=== PATIENT | female | born 1990 | race Caucasian/White ===

== ENCOUNTER → 2017-01-21 | Outpatient (CLI) | payer OTHER | END | disposition home or self-care (01) | LOC: C.PAPS 14:01 | PROVIDERS: ATTEND Physician Assistant | DX: Z12.4 Encounter for screening for malignant neoplasm of cervix (principal) ==

== ENCOUNTER → 2017-01-25 | Outpatient (CLI) | payer OTHER ==
[2017-01-25 09:54] LABS: THYROID STIMULATING HORMONE 2.07 uIu/ml (0.300-4.500)
[2017-01-25 10:22] LABS: PROLACTIN 12.62 ng/mL
[2017-01-25 10:23] LABS: CALCULATED INSULIN SENSITIVITY 0.308; GLUCOSE LOG 1.9191; INSULIN FASTING 21.4 mU/L (3-25); INSULIN LOG 1.3304
== END | disposition home or self-care (01) ==
LOC: C.LAB1850 08:14
PROVIDERS: ATTEND Physician Assistant
DX: L68.0 Hirsutism (principal); N92.6 Irregular menstruation, unspecified

== ENCOUNTER 2021-12-19 07:21 | Inpatient (IN) ==
[2021-12-19] MEDS ORDERED: LIDOCAINE 1% LOCAL 20 ML VIAL INFIL PRN (07:28)
[2021-12-19] MEDS ORDERED: OXYTOCIN 30 UNITS/500 ML BAG IV PRN ×3 (07:28→22:49)
[2021-12-19 08:01] LABS: Hematocrit (blood only) 40.5 % (34.1-44.9); Hemoglobin 13.6 g/dl (12.0-16.0); Mean Corpuscular Hemoglobin 27.9 pg (25.0-34.0); Mean Corpuscular Hgb Conc 33.6 g/dL (32.0-36.0); Mean Platelet Volume 9.7 fL (9.4-12.3); Platelet Count 319 K/uL (130-400); RDW Standard Deviation 44.9 fL (36.4-46.3); Red Blood Count 4.88 M/uL (3.93-5.22)
[2021-12-19] MEDS: LACTATED RINGER'S 1,000 ML IV PRN ×3 (09:06→18:24)
--- NOTE | 2021-12-19 10:37 | History & Physical Report ---
Date of Service December 19, 2021 Assessment & Plan (1) Supervision of normal first : (2) Post term at 41 weeks gestation: Plan: cervical balloon placed successfully for unfavorable cervix at term pitocin augmentation epidural analgesia when requested anticipate vaginal Admission and Anticipated Discharge Date Admission Date: December 19, 2021 History of Present Illness Primary Care Provider: BANG Garzon Patient is a 31 yo female EDC 12/11/21 who presents for IOL because of post term . complicated by elevated BMI. growth at 32 weeks was 21%tile. GBS negative, Rubella equivocal. Allergies Allergy/AdvReac Type Severity Reaction Status Date / Time No Known Allergies Allergy Verified 12/19/21 08:35 Home Medications Medication Instructions Recorded Confirmed Type prenat.vits,deni,gwi-qwzv-thqlh 1 tab PO DAILY 04/26/21 12/19/21 History magnesium 500 mg tablet PO DAILY 12/19/21 History Patient History Medical History Hx of migraines Varicella vaccination Surgical History S/P tonsillectomy and adenoidectomy Family History Mother Hypertension Father Hypertension Denies family history of Ovarian cancer Breast cancer Colorectal cancer Social History Smoking Status: Never smoker Hx Alcohol Use: No Hx Substance Use: No Preferred Language: Tajik Communication Ability: Effective 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 Beliefs That Will Affect Care: None marital status: marital status details: Brandon Davila (30) [phone] Current Living Situation: Spouse Current Living Situation Comment: Brandon - current occupational status: employed current occupation: outside installer apprentice rep Other Information That Helps Us Care for You: No Feels Safe at Home: Yes Safety Concerns: Feels Safe At This Time Assistive Devices: None Review of Systems All systems reviewed & are unremarkable except as noted in HPI & below Physical Exam Constitutional: WD/WN, vitals as above Psychiatric: A+Ox3, euthymic affect Genitourinary: OB Exam Abdomen: + vertex, + estimated weight (6-7 pounds) and + irregular contractions Manual OB Exam: + cervical dilation (closed), + cervical effacement 70% and + station -2 OB Exam Monitor Tracing: + external FHT monitor used, + external uterine monitor used, + category I and + normal FHT variability cervical balloon placed under direct visualization after speculum placed vaginally. 40cc sterile water were instilled into the balloon. the catheter was placed on traction an attached to her left thigh. patient tolerated procedure well. Results & Data ([facility]) Vital Signs (Past 12 Hours) Vital Signs Temp Pulse Resp BP 12/19/21 07:53 98.4 F 20 12/19/21 10:20 81 12/19/21 10:20 114/68 12/19/21 09:12 90 12/19/21 09:12 115/82 12/19/21 08:02 100 H 12/19/21 08:02 117/85 12/19/21 07:45 96 H 143/93 H Coding Level of Care Code None Diagnoses Supervision of normal first Z34.00 Post term at 41 weeks gestation O48.0; Z3A.41 CPT Codes Misx Procedure Codes - 36133 Placement of cervical dilator: 57286 Placement of cervical dilator ([id number])
[2021-12-19] MEDS ORDERED: ePHEDrine sulfate 50 MG/ML AMP ONE (15:38)
[2021-12-19] MEDS ORDERED: fentaNYL 2MCG/ML ROPIVACAINE 1.25MG/ML 100 ML BAG EPI ONE (15:39)
[2021-12-19] MEDS ORDERED: SODIUM CHLORIDE 0.9% INJ 10 ML VIAL ONE (15:39)
[2021-12-19] MEDS ORDERED: fentaNYL citrate 100 MCG/2 ML VIAL ONE (15:39)
[2021-12-19] MEDS ORDERED: BUPIVACAINE 0.25% 30 ML VIAL ONE (15:39)
[2021-12-19] MEDS ORDERED: LIDOCAINE 2%/EPINEPHRINE 1:200,000 20 ML SDV ONE (15:39)
[2021-12-19] MEDS ORDERED: fentaNYL 2MCG/ML ROPIVACAINE 1.25MG/ML 100 ML BAG EPI PRN (15:52)
[2021-12-19] MEDS ORDERED: NALOXONE HCL 1 MG in SODIUM CHLORIDE 0.9% 1000ML 1,000 ML IV PRN (15:52)
[2021-12-19] MEDS ORDERED: ONDANSETRON INJ 2 MG/ML 2 ML VIAL IV PRN (15:52)
[2021-12-19] MEDS ORDERED: ePHEDrine sulfate 50 MG/ML AMP IV PRN (15:52)
[2021-12-19] MEDS ORDERED: NALBUPHINE HCL INJ 10 MG/ML AMP IV PRN (15:52)
[2021-12-19] MEDS ORDERED: NALOXONE HCL 0.4 MG/1 ML VIAL/CARP IV PRN (15:52)
[2021-12-19] MEDS ORDERED: diphenhydrAMINE 50 MG/ML VIAL IV PRN (15:52)
--- NOTE | 2021-12-19 16:02 | Anesthesiology Consultation ---
Date of Service December 19, 2021 Assessment & Plan Chart Review Chart Review: Acceptable Risk for Labor Epidural Consults Requested none ASA ASA2 Proposed Anesthesia Anesthesia Type: Labor Epidural Risk / Benefits Reviewed With: PT / POA / Parent / Guardian, Accepts Plan and Informed Consent Obtained History Height/Weight Height: 5 ft 8 in Weight: 115.666 kg Allergies Allergy/AdvReac Type Severity Reaction Status Date / Time No Known Allergies Allergy Verified 12/19/21 08:35 Medications Home Medications Medication Instructions Recorded Confirmed Last Taken prenat.vits,deni,gkq-wkkh-ddrep 1 tab PO DAILY 04/26/21 12/19/21 12/19/21 06:00 magnesium 500 mg tablet PO DAILY 12/19/21 12/19/21 06:00 Active Medications Generic Name Dose Route Start Last Admin Trade Name Freq PRN Reason Stop Dose Admin Oxytocin 30 units in 500 mls @ 9 mls/hr 12/19/21 07:28 12/19/21 11:30 Pitocin IV 12/21/21 07:27 0.54 units/hr .Q24H PRN 9 mls/hr Labor Induction/Augmentation Titration Protocol 0.54 UNITS/HR Lactated Ringer's 1,000 mls @ 125 mls/hr 12/19/21 07:28 12/19/21 15:47 Lr IV 12/21/21 07:27 999 mls/hr .Q8H PRN Administration L&D Protocol Protocol Past Medical History Medical History Hx of migraines Varicella vaccination Exercise / Class Metabolic Activity II 4-5 Yardwork/Stairs/Walk up hill Past Family History Family History Mother Hypertension Father Hypertension Denies family history of Ovarian cancer Breast cancer Colorectal cancer Past Surgical History Surgical History S/P tonsillectomy and adenoidectomy Past Anesthesia History No Hx of Anesthesia Complications and No Family Hx of Anesthesia Complications History of PONV No Hx of PONV and No Hx of Motion Sickness Social History Smoking Status: Never smoker Hx Alcohol Use: No Hx Substance Use: No Physical Exam Vital Signs Last Vital Signs Temp 98.4 F 12/19/21 07:53 Pulse 84 12/19/21 15:37 Resp 20 12/19/21 07:53 BP 140/82 12/19/21 15:37 ENMT Mouth: no dentition abnormality Thyromental Distance: > or= 3.5 Finger Breadths Mallampati Class: II Neck normal visual inspection Respiratory normal respiratory effort Auscultation: lungs clear to auscultation bilaterally Cardiovascular Rate/Rhythm: regular rate and regular rhythm Testing Laboratory Results 12/19/21 07:49 Blood Type O Positive 12/19/21 07:49 Antibody Screen NEGATIVE 12/19/21 07:49
[2021-12-19] MEDS ORDERED: CALCIUM CARBONATE 500 MG CHEWABLE TAB PO PRN (20:14)
[2021-12-19] MEDS ORDERED: CALCIUM CARBONATE 500 MG CHEWABLE TAB ONE (20:32)
[2021-12-19] MEDS ORDERED: ACETAMINOPHEN 325 MG TAB PO PRN (22:49)
[2021-12-19] MEDS ORDERED: BENZOCAINE 20% AER SPR 82.5 GM CAN EXT PRN (22:49)
[2021-12-19] MEDS ORDERED: oxyCODONE/ACETAMINOPHEN 5mg/325mg TAB PO PRN (22:49)
[2021-12-19] MEDS ORDERED: DIPHTHERIA/TETANUS/PERTUSSIS 0.5 ML SYR/VIAL IM ONE (22:49)
[2021-12-19] MEDS ORDERED: HYDROCORTISONE ACETATE 25 MG SUPP PR PRN (22:49)
[2021-12-19] MEDS ORDERED: bisacodyL 10 MG SUPP PR PRN (22:49)
--- NOTE | 2021-12-19 23:18 | Delivery Summary ---
Vaginal Delivery Summary Date of Service December 19, 2021 Vaginal Delivery Summary and 2nd Degree LAC Patient is a 31-year-old 1 P0 female who presented for induction of labor because of postterm . She received a cervical balloon and Pitocin augmentation on admission. After balloon was expelled membranes were ruptured for clear fluid. She received effective epidural analgesia. She progressed to full dilation and pushed effectively over intact perineum for de livery of a viable female infant. After the head was delivered loose double nuchal cord was reduced prior to delivering the rest of the . The was placed on the mother's abdomen for further attention and drying. She was vigorous and moving all 4 limbs. After 1 minute the cord was clamped and cut. The placenta was expressed intact with a three-vessel cord. A second-degree perineal laceration was repaired with 3-0 chromic in the usual fashion. Estimated blood loss was 200 cc. Mother and were doing well after delivery. MNP Vaginal Delivery Charge Delivery Type Details: and 2nd Degree LAC
[2021-12-20] MEDS: IBUPROFEN 600 MG TAB PO PRN ×5 (01:42→23:25)
--- NOTE | 2021-12-20 05:58 | Obstetrical Progress Note ---
Date of Service <Ira Srinivasan - Last Filed: 12/20/21 07:35> December 20, 2021 Assessment & Plan <Ira Srinivasan - Last Filed: 12/20/21 07:35> (1) Status post vaginal delivery: continue OOB, ambulation, diet as tolerated <Leah See MD, FACOG - Last Filed: 12/20/21 08:12> (1) Status post vaginal delivery: Subjective <Ira SrinivasanDO - Last Filed: 12/20/21 07:35> Marlin is a 31 y/o female who is now PPD # 1 following spontaneous vaginal delivery at 41 1/7 weeks. Minimal sleep last night, baby was up most of the night. Mild abdominal cramping & pain well managed on analgesics. Voiding. Tolerating meals overnight and able to ambulate some. Some persistent lochia with some improvement this morning. Bottle feeding. Review of Systems Denies fever, chills, sweats Denies shortness of breath, difficulty breathing, chest pain, palpitations, chest pressure. Denies breast pain. Denies dysuria. Denies headache or changes in vision. Physical Exam <Ira Srinivasan - Last Filed: 12/20/21 07:35> General: Alert, oriented. No acute distress. Cardiac: Regular rate and rhythm, no murmurs/rubs/gallops. Respiratory: Clear to auscultation bilaterally a/p, no wheezes/rales/rhonchi. No increased work of breathing. Symmetrical chest rise. No respiratory distress. Abdomen: Soft, nontender, nondistended. Uterus: Uterine fundus firm, palpable at umbilicus. Lower Extremities: No lower extremity edema or swelling. No deep calf pain. Lulú's negative bilaterally. Results & Data ([facility]) <Ira SrinivasanDO - Last Filed: 12/20/21 07:35> Vital Signs (Past 12 Hours) Vital Signs Temp Pulse Pulse Resp BP BP Pulse Ox 12/20/21 04:15 36.4 C L 109 H 20 129/91 97 12/20/21 01:15 36.7 C 113 H 18 123/87 97 12/19/21 23:30 116 H 18 151/82 H 12/19/21 23:15 100 H 18 148/80 H 12/19/21 23:00 100 H 18 148/80 H 12/19/21 22:45 100 H 18 12/20/21 00:43 114 H 136/80 12/20/21 00:28 120 H 132/74 12/20/21 00:13 122 H 145/69 H 12/19/21 23:58 126 H 12/19/21 23:58 144/71 H 12/19/21 23:43 113 H 12/19/21 23:43 148/71 H 12/19/21 23:28 116 H 12/19/21 23:28 151/82 H 12/19/21 23:13 100 H 12/19/21 23:13 148/80 H 12/19/21 22:58 100 H 12/19/21 22:58 169/95 H 12/19/21 22:43 111 H 12/19/21 22:43 128/85 12/19/21 22:40 97 12/19/21 22:40 113 H 12/19/21 22:35 97 12/19/21 22:35 118 H 12/19/21 22:30 96 12/19/21 22:30 121 H 12/19/21 22:25 96 12/19/21 22:25 117 H 12/19/21 22:20 97 12/19/21 22:20 123 H 12/19/21 22:15 99 12/19/21 22:15 130 H 12/19/21 22:13 111 H 12/19/21 22:13 167/77 H 12/19/21 22:10 97 12/19/21 22:10 108 H 12/19/21 22:05 97 12/19/21 22:05 104 H 12/19/21 22:00 97 12/19/21 22:00 99 H 12/19/21 22:00 18 12/19/21 22:00 18 12/19/21 21:59 98 H 12/19/21 21:59 163/85 H 12/19/21 21:55 98 12/19/21 21:55 96 H 12/19/21 21:50 95 12/19/21 21:50 96 H 12/19/21 21:30 18 12/19/21 21:30 18 12/19/21 21:45 96 12/19/21 21:45 95 H 12/19/21 21:43 95 H 12/19/21 21:43 170/94 H 12/19/21 21:40 97 12/19/21 21:40 98 H 12/19/21 21:35 94 12/19/21 21:35 101 H 12/19/21 21:30 95 12/19/21 21:30 95 H 12/19/21 21:28 93 H 12/19/21 21:28 162/90 H 12/19/21 21:25 96 12/19/21 21:25 101 H 12/19/21 21:20 95 12/19/21 21:20 94 H 12/19/21 21:15 97 12/19/21 21:15 94 H 12/19/21 21:13 88 12/19/21 21:13 144/85 H 12/19/21 21:10 97 12/19/21 21:10 91 H 12/19/21 21:05 97 12/19/21 21:05 91 H 12/19/21 20:47 36.9 C 12/19/21 21:00 18 12/19/21 21:00 18 12/19/21 21:00 96 12/19/21 21:00 96 H 12/19/21 20:58 91 H 12/19/21 20:58 164/89 H 12/19/21 20:55 97 12/19/21 20:55 92 H 12/19/21 20:50 97 12/19/21 20:50 93 H 12/19/21 20:45 97 12/19/21 20:45 91 H 12/19/21 20:44 90 12/19/21 20:44 132/87 12/19/21 20:40 97 12/19/21 20:40 96 H 12/19/21 20:30 18 12/19/21 20:30 18 12/19/21 20:00 18 12/19/21 20:00 18 12/19/21 20:35 97 12/19/21 20:35 93 H 12/19/21 20:30 97 12/19/21 20:30 95 H 12/19/21 20:29 109 H 12/19/21 20:29 172/97 H 12/19/21 20:25 97 12/19/21 20:25 86 12/19/21 20:20 97 12/19/21 20:20 91 H 12/19/21 20:15 98 12/19/21 20:15 96 H 12/19/21 20:14 100 H 12/19/21 20:14 148/95 H 12/19/21 20:10 97 12/19/21 20:10 97 H 12/19/21 20:05 96 12/19/21 20:05 92 H 12/19/21 20:00 97 12/19/21 20:00 90 12/19/21 19:58 85 12/19/21 19:58 143/91 H 12/19/21 19:55 98 12/19/21 19:55 90 12/19/21 19:50 97 12/19/21 19:50 93 H 12/19/21 19:45 98 12/19/21 19:45 85 12/19/21 19:44 83 12/19/21 19:44 147/84 H 12/19/21 19:41 92 12/19/21 19:41 100 H 12/19/21 19:40 99 12/19/21 19:40 98 H 12/19/21 19:35 98 12/19/21 19:35 83 12/19/21 19:30 96 12/19/21 19:30 90 12/19/21 19:30 18 12/19/21 19:30 18 12/19/21 19:29 82 12/19/21 19:29 134/69 12/19/21 19:25 96 12/19/21 19:25 83 12/19/21 19:20 97 12/19/21 19:20 82 12/19/21 19:15 97 12/19/21 19:15 80 12/19/21 19:13 83 12/19/21 19:13 129/75 12/19/21 19:10 98 12/19/21 19:10 81 12/19/21 18:35 20 12/19/21 18:35 20 12/19/21 19:06 18 12/19/21 19:06 36.9 C 18 12/19/21 19:05 97 12/19/21 19:05 86 12/19/21 19:00 96 12/19/21 19:00 78 10/25/22 18:58 80 12/19/21 18:58 127/66 12/19/21 18:55 95 12/19/21 18:55 86 12/19/21 18:50 97 12/19/21 18:50 80 12/19/21 18:45 96 12/19/21 18:45 90 12/19/21 18:44 78 12/19/21 18:44 126/64 12/19/21 18:40 97 12/19/21 18:40 79 12/19/21 18:20 20 12/19/21 18:20 20 12/19/21 18:05 20 12/19/21 18:05 20 12/19/21 18:35 97 12/19/21 18:35 77 12/19/21 18:30 98 12/19/21 18:30 84 12/19/21 18:29 87 12/19/21 18:29 128/62 12/19/21 18:25 99 12/19/21 18:25 93 H 12/19/21 18:20 100 12/19/21 18:20 84 12/19/21 18:15 98 12/19/21 18:15 83 12/19/21 18:14 76 12/19/21 18:14 132/74 12/19/21 18:10 98 12/19/21 18:10 95 H 12/19/21 18:05 98 12/19/21 18:05 85 12/19/21 18:00 97 12/19/21 18:00 85 12/19/21 17:59 81 12/19/21 17:59 139/84 O2 Del Method 12/20/21 04:15 Room Air 12/20/21 01:15 Room Air 12/19/21 23:30 12/19/21 23:15 12/19/21 23:00 12/19/21 22:45 12/20/21 00:43 12/20/21 00:28 12/20/21 00:13 12/19/21 23:58 12/19/21 23:58 12/19/21 23:43 12/19/21 23:43 12/19/21 23:28 12/19/21 23:28 12/19/21 23:13 12/19/21 23:13 12/19/21 22:58 12/19/21 22:58 12/19/21 22:43 12/19/21 22:43 12/19/21 22:40 12/19/21 22:40 12/19/21 22:35 12/19/21 22:35 12/19/21 22:30 12/19/21 22:30 12/19/21 22:25 12/19/21 22:25 12/19/21 22:20 12/19/21 22:20 12/19/21 22:15 12/19/21 22:15 12/19/21 22:13 12/19/21 22:13 12/19/21 22:10 12/19/21 22:10 12/19/21 22:05 12/19/21 22:05 12/19/21 22:00 12/19/21 22:00 12/19/21 22:00 12/19/21 22:00 12/19/21 21:59 12/19/21 21:59 12/19/21 21:55 12/19/21 21:55 12/19/21 21:50 12/19/21 21:50 12/19/21 21:30 12/19/21 21:30 12/19/21 21:45 12/19/21 21:45 12/19/21 21:43 12/19/21 21:43 12/19/21 21:40 12/19/21 21:40 12/19/21 21:35 12/19/21 21:35 12/19/21 21:30 12/19/21 21:30 12/19/21 21:28 12/19/21 21:28 12/19/21 21:25 12/19/21 21:25 12/19/21 21:20 12/19/21 21:20 12/19/21 21:15 12/19/21 21:15 12/19/21 21:13 12/19/21 21:13 12/19/21 21:10 12/19/21 21:10 12/19/21 21:05 12/19/21 21:05 12/19/21 20:47 12/19/21 21:00 12/19/21 21:00 12/19/21 21:00 12/19/21 21:00 12/19/21 20:58 12/19/21 20:58 12/19/21 20:55 12/19/21 20:55 12/19/21 20:50 12/19/21 20:50 12/19/21 20:45 12/19/21 20:45 12/19/21 20:44 12/19/21 20:44 12/19/21 20:40 12/19/21 20:40 12/19/21 20:30 12/19/21 20:30 12/19/21 20:00 12/19/21 20:00 12/19/21 20:35 12/19/21 20:35 12/19/21 20:30 12/19/21 20:30 12/19/21 20:29 12/19/21 20:29 12/19/21 20:25 12/19/21 20:25 12/19/21 20:20 12/19/21 20:20 12/19/21 20:15 12/19/21 20:15 12/19/21 20:14 12/19/21 20:14 12/19/21 20:10 12/19/21 20:10 12/19/21 20:05 12/19/21 20:05 12/19/21 20:00 12/19/21 20:00 12/19/21 19:58 12/19/21 19:58 12/19/21 19:55 12/19/21 19:55 12/19/21 19:50 12/19/21 19:50 12/19/21 19:45 12/19/21 19:45 12/19/21 19:44 12/19/21 19:44 12/19/21 19:41 12/19/21 19:41 12/19/21 19:40 12/19/21 19:40 12/19/21 19:35 12/19/21 19:35 12/19/21 19:30 12/19/21 19:30 12/19/21 19:30 12/19/21 19:30 12/19/21 19:29 12/19/21 19:29 12/19/21 19:25 12/19/21 19:25 12/19/21 19:20 12/19/21 19:20 12/19/21 19:15 12/19/21 19:15 12/19/21 19:13 12/19/21 19:13 12/19/21 19:10 12/19/21 19:10 12/19/21 18:35 12/19/21 18:35 12/19/21 19:06 12/19/21 19:06 12/19/21 19:05 12/19/21 19:05 12/19/21 19:00 12/19/21 19:00 12/19/21 18:58 12/19/21 18:58 12/19/21 18:55 12/19/21 18:55 12/19/21 18:50 12/19/21 18:50 12/19/21 18:45 12/19/21 18:45 12/19/21 18:44 12/19/21 18:44 12/19/21 18:40 12/19/21 18:40 12/19/21 18:20 12/19/21 18:20 12/19/21 18:05 12/19/21 18:05 12/19/21 18:35 12/19/21 18:35 12/19/21 18:30 12/19/21 18:30 12/19/21 18:29 12/19/21 18:29 12/19/21 18:25 12/19/21 18:25 12/19/21 18:20 12/19/21 18:20 12/19/21 18:15 12/19/21 18:15 12/19/21 18:14 12/19/21 18:14 12/19/21 18:10 12/19/21 18:10 12/19/21 18:05 12/19/21 18:05 12/19/21 18:00 12/19/21 18:00 12/19/21 17:59 12/19/21 17:59 <Leah See MD, FACOG - Last Filed: 12/20/21 08:12> Co-Signing Physician Notes Resident Physician Supervision Note: I interviewed and examined the patient. Discussed with Dr. Srinivasan and agree with findings and plan as documented in the note. Any exceptions or clarifications are listed here: [None] Documented By: Leah See MD, FACOG Resident Activity Tracking <Ira Srinivasan, DO - Last Filed: 12/20/21 07:35> Resident Involvement: Resident Care Provided Care Provided: OB Delivery (Post )
--- NOTE | 2021-12-20 07:42 | Anesthesia Procedure Note ---
Date of Service December 20, 2021 Anesthesia Post Epidural Note Vital Signs Vital Signs: Temp Pulse Resp BP Pulse Ox O2 Del Method 36.4 C L 109 H 20 129/91 97 12/20/21 04:15 12/20/21 04:15 12/20/21 04:15 12/20/21 04:15 12/20/21 04:15 12/20/21 04:15 Pain Intensity Abdomen: Pain Intensity: 2 Notes Mental Status: alert / awake / arousable Nausea / Vomiting: adequately controlled Pain: adequately controlled Airway Patency, RR, SpO2: stable & adequate BP & HR: stable & adequate Hydration State: stable & adequate Neuraxial Anesthesia: was administered and sensory block is resolving Anesthetic Complications: no major complications apparent and Pt Satisfied with anesthetic care Epidural: Removed without complications and With tip intact
[2021-12-20 08:10] LABS: Hematocrit (blood only) 36.3 % (34.1-44.9); Hemoglobin 12.1 g/dl (12.0-16.0); Mean Corpuscular Hemoglobin 27.9 pg (25.0-34.0); Mean Corpuscular Hgb Conc 33.3 g/dL (32.0-36.0); Mean Corpuscular Volume 83.8 fL (80.0-100.0); Mean Platelet Volume 10.1 fL (9.4-12.3); Platelet Count 327 K/uL (130-400); RDW Coefficient of Variation 15.1 % (11.5-14.5); RDW Standard Deviation 45.9 fL (36.4-46.3); Red Blood Count 4.33 M/uL (3.93-5.22); White Blood Count 21.08 K/ul (4.8-10.8)
[2021-12-20] MEDS: PRENATAL VITAMIN 1 TAB PO SCH (08:14)
[2021-12-20] MEDS: DOCUSATE SODIUM 100 MG CAP PO SCH ×2 (08:14→23:26)
[2021-12-20] MEDS ORDERED: MEASLES, MUMPS & RUBELLA VIRUS VIAL SQ ONE (10:01)
[2021-12-20] MEDS ORDERED: bisacodyL 5 MG TABEC PO SCH (20:00)
--- NOTE | 2021-12-21 05:46 | Obstetrical Progress Note ---
Date of Service <Ira Srinivasan DO - Last Filed: 12/21/21:27> December 21, 2021 Assessment & Plan <Ira Srinivasan DO - Last Filed: 12/21/21 06:27> (1) Status post vaginal delivery: continue OOB, ambulation, diet as tolerated <Kateryna Crowder, DO - Last Filed: 12/21/21 07:14> (1) Status post vaginal delivery: Subjective <Ira Srinivasan DO - Last Filed: 12/21/21 06:27> Marlin is a 31 y/o female who is now PPD # 2 following spontaneous vaginal delivery at 41 1/7 weeks. Is doing well this morning was able to get some sleep last night. Mild abdominal cramping & pain well managed on analgesics. Voiding. Tolerating meals overnight and able to ambulate some. Some persistent lochia with some improvement this morning. Bottle feeding. Review of Systems Denies fever, chills, sweats Denies shortness of breath, difficulty breathing, chest pain, palpitations, chest pressure. Denies breast pain. Denies dysuria. Denies headache or changes in vision. Physical Exam <Ira Srinivasan DO - Last Filed: 12/21/21 06:27> General: Alert, oriented. No acute distress. Cardiac: Regular rate and rhythm, no murmurs/rubs/gallops. Respiratory: Clear to auscultation bilaterally a/p, no wheezes/rales/rhonchi. No increased work of breathing. Symmetrical chest rise. No respiratory distress. Abdomen: Soft, nontender, nondistended. Uterus: Uterine fundus firm, palpable at 2 cm below umbilicus. Lower Extremities: No lower extremity edema or swelling. No deep calf pain. Lulú's negative bilaterally. Results & Data ([facility]) <Ira Srinivasan - Last Filed: 12/21/21 06:27> Vital Signs (Past 12 Hours) Vital Signs Temp Pulse Resp BP Pulse Ox O2 Del Method 12/20/21 23:20 36.6 C 87 18 123/85 99 Room Air 12/20/21 19:30 36.4 C L 92 H 18 103/69 98 Room Air <Kateryna Crowder, DO - Last Filed: 12/21/21 07:14> Co-Signing Physician Notes Resident Physician Supervision Note: I was present with Dr. Srinivasan during the history and exam. I discussed the case with the resident and agree with the findings and plan as documented in the note. Any exceptions or clarifications are listed here: PPD#2 doing well. DC home today. Instructions reviewed. Documented By: Kateryna Crowder DO Resident Activity Tracking <Ira Srinivasan DO - Last Filed: 12/21/21 06:27> Resident Involvement: Resident Care Provided Care Provided: OB Delivery (Post )
[2021-12-21] MEDS: PRENATAL VITAMIN 1 TAB PO SCH (07:19)
[2021-12-21] MEDS: DOCUSATE SODIUM 100 MG CAP PO SCH (07:19)
[2021-12-21 08:02] LABS: Hematocrit (blood only) 31.8 % (34.1-44.9); Hemoglobin 10.4 g/dl (12.0-16.0)
== END 2021-12-21 09:10 | disposition home or self-care (01) | DRG 807 ==
LOC: 4S1 07:21 → 4E2 12-20 01:13